=== PATIENT | female | born 2005 | race Caucasian/White ===

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

== ENCOUNTER 2024-09-15 21:21 | Emergency (ER) | payer BC, SELFPAY ==
[2024-09-15 21:23] VITALS: BP 129/80; PULSE 88; RESP 14; TEMP 36.8; O2SAT 100; BMI 18.0
--- NOTE | 2024-09-15 22:18 | EX.ED.DYSGE1 ---
HPI History of Present Illness Chief Complaint: General Illness Informant: patient Narrative Narrative: Presenting with friend reporting fatigue generalized arthralgias for last couple days. No fevers headache muscle pains. No vomiting diarrhea. No cough. No urinary symptoms. Reports concerned of Lyme disease. She states 10 days ago took many ticks off her dog there was some on her arm however none was buried in her arms. She has had tick bites in the past that it has been removed when she was younger. No diagnosis of Lyme disease. 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-employment Home Medications ?Medication ?Instructions ?Recorded ?Last Taken ?Type NK 09/15/24 Unknown History Allergy/AdvReac Type Severity Reaction Status Date / Time No Known Allergies Allergy Verified 09/15/24 21:26 Family History Other Diabetes Heart disease Social History Smoking Status: Current every day smoker tobacco type: e-cigarettes ROS ROS ED Constitutional Constitutional ED: Reports other Details: Fatigue ; Denies chills, fever(s) or sweats ENT ENT ED: Denies sore throat Cardiovascular Cardiovascular: Denies chest pain, leg edema, palpitations or racing heartbeat Respiratory/Chest Respiratory/Chest: Denies cough, dyspnea or dyspnea on exertion Gastrointestinal Gastrointestinal: Denies abdominal pain, diarrhea, nausea or vomiting Genitourinary Genitourinary ED: Denies dysuria, hematuria or urinary frequency Musculoskeletal Musculoskeletal: Reports arthralgias; Denies back pain, extremity pain or neck pain Integumentary Denies rash or wounds Neurologic Neurologic: Denies headache(s), paresthesias or weakness EXAM Physical Exam Const Vital Signs: 09/15/24 21:23 09/15/24 21:44 09/15/24 22:24 Temperature 98.2 F 97.5 F L Temperature Source Oral Pulse Rate 88 69 Respiratory Rate 14 14 Respiratory Effort Normal Respiratory Pattern Normal Blood Pressure 129/80 H 114/62 Blood Pressure Mean 96 79 Pulse Ox 100 100 Oxygen Delivery Method Room Air Positive well nourished and well developed General Appearance ED: well developed and NAD HEENT Reports moist mucous membranes normocephalic and atraumatic Eyes General Eye ED: Yes normal appearance of both eyes Neck full ROM Chest Wall Chest: Negative for tenderness Resp normal respiratory effort and normal air movement Effort and Inspection: symmetric chest movement; Negative for respiratory distress Cardio regular rate, regular rhythm and no murmurs Peripheral Pulses: pulses 2+ throughout GI normal to inspection, nondistended, normoactive bowel sounds and non-tender Palpation: Negative for guarding or rebound tenderness present Extremity normal to inspection General Extremety ED: Negative for edema or tenderness General Extremity: Negative for edema Neuro oriented x3 and no sensory deficits noted Sensorium / Orientation: awake and alert Skin no rashes or lesions noted and no wounds MDM MDM MDM Narrative Medical decision making narrative: Interventions / MDM: Differential diagnosis: Fatigue, arthralgias, concerns of Lyme disease Diagnosis considered but do not suspect: No clinical pneumonia or UTI symptoms. My EKG interpretation: N/A Imaging independently reviewed and interpreted by myself: N/A External documents reviewed: N/A Test considered but not ordered:N/A ED course: Vital signs stable patient nontoxic. Generalized fatigue with arthralgia as a last 2 days. No swelling of joints on exam. Nontoxic. Exposed to many ticks from removed from dog 10 days ago. There has been no rashes, in particular target lesions. With patient concern for Lyme titer sent out for further evaluation. Discussed with patient to contact if positive for treatment. Without lesions, low suspicion therefore no empiric antibiotics will be started at this time unless positive. Re-evaluation: stable Disposition discussed with patient/family/significant other: Patient Case discussed with consulting clinician: N/A This note was generated with Spindle dictation software. It may contain incorrect words, spelling, and punctuation that were not noted in checking the note before signing. Discharge Plan Triage Chief Complaint: General Illness ED Provider: Adriel Segura Dx/Rx/DC Orders Clinical Impression: Fatigue, Arthralgia Instructions: ED Arthralgia Prescriptions: No Action NK Primary Care Provider: Shelly Muhammad Referrals: Shelly Muhammad MD [Primary Care Provider] - 1 Week if not improving Activity Restrictions/Additional Instructions: Lyme titer ordered sent out. Can be contacted if positive for treatment. Print Language: Chinese Disposition Disposition: Home, Self Care Discharge Date/Time: 09/15/24 22:25
[2024-09-15 22:24] VITALS: BP 114/62; PULSE 69; RESP 14; TEMP 36.4; O2SAT 100
[2024-09-17 15:08] LABS: Lyme Scn Total Ab w/Rflx Negative (Negative)
== END 2024-09-15 22:25 | disposition home or self-care (01) ==
PROVIDERS: Emergency Provider Emergency Medicine; PCP Family Medicine; Visit Provider Emergency Medicine
DX: R53.83 Other fatigue (principal); M25.50 Pain in unspecified joint; F17.290 Nicotine dependence, other tobacco product, uncomplicated
CPT/HCPCS: 86618; 99282

== ENCOUNTER → 2024-11-12 | Outpatient (CLI) | payer BC, SELFPAY ==
[2024-11-12 15:53] LABS: Hematocrit 37.9 % (37-47); Hemoglobin 13.2 g/dL (12.0-15.0); Immature Granulocytes Count 0.020 X10^3/uL (0.0-0.0); Mean Corp Hgb Conc 34.8 g/dL (32-36); Mean Corpuscular Volume 85.9 fL (81-99); Mean Platelet Vol. 11.4 fl (6.2-12.0); NRBC Flagged by Analyzer 0 % (0-5); Platelet Count 288 K/mm3 (150-450); RBC Distribution Width CV 12.1 % (11.6-14.6); RBC Distribution Width SD 38.3 fl (35.1-43.9); Red Blood Count 4.41 M/mm3 (4.2-5.4); White Blood Count 8.2 K/mm3 (4.4-11.0)
== END | disposition home or self-care (01) ==
LOC: BFHLAB 13:28
PROVIDERS: PCP Family Medicine; Visit Provider Family Medicine
DX: R63.4 Abnormal weight loss (principal)
CPT/HCPCS: 36415; 84443; 85025

== ENCOUNTER 2025-01-10 22:35 | Emergency (ER) | payer BC, SELFPAY ==
[2025-01-10 22:37] VITALS: BP 116/72; PULSE 73; RESP 16; TEMP 37.1; O2SAT 100; BMI 18.3
--- NOTE | 2025-01-11 01:02 | EDS_ITS ---
HPI History of Present Illness Chief Complaint: General Illness Narrative Narrative: Chief complaint and HPI: Concern for toxic shock syndrome. 19-year-old female with no significant past medical history presents for concern of toxic shock syndrome. Patient states that she was recently on her menstrual cycle. States she accidentally left her tampon in for 2 days. States that the string was not visible. States today she developed some pelvic cramping in which she realized that she still had a tampon inserted. She states when she took the tampon out there was green discharge. She denies any fever, shortness of breath, chest pain, nausea, vomiting. Does endorse some dysuria. States she has not been sexually active in a year and no concern for or STI. Does endorse a mild sore throat. Review of systems: See HPI Medications: As listed on the chart Allergies: As listed on the chart PFSH: Per chart Vital signs: As listed on the chart. Reviewed. Physical exam: Gen: A&O x3, NAD Head: Normocephalic, atraumatic Eyes: No sclera icterus, conjunctiva clear, PERRL, EOMI ENT: TMs clear BL, moist mucous membranes, posterior oropharynx unremarkable, uvula midline, tonsils not enlarged, no tonsillar exudates Neck: Trachea midline, No JVD, Full ROM, No meningismus CV: RRR, no murmurs, no peripheral edema Resp: Lungs CTA BL, no w/r/c GI: Abd soft, non-distended, non-tender, no r/r/g Pelvic: Normal external genitalia. No lesions, masses, or rashes appreciated. No active vaginal bleeding or discharge noted. No drainage or bleeding noted from the cervix. Cervix is non-friable. No cervical motion tenderness appreciated. No sign of PID on examination. No adnexa or ovarian tenderness with digital exam. 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 exam, pre-employment Home Medications ?Medication ?Instructions ?Recorded ?Last Taken ?Type NK 09/15/24 Unknown History Allergy/AdvReac Type Severity Reaction Status Date / Time No Known Allergies Allergy Verified 01/10/25 22:37 Family History Other Diabetes Heart disease Social History Smoking Status: Current every day smoker tobacco type: e-cigarettes EXAM Physical Exam Const Vital Signs: 01/10/25 22:37 01/11/25 00:39 Temperature 98.8 F Temperature Source Oral Pulse Rate 73 Respiratory Rate 16 Respiratory Effort Normal Respiratory Pattern Normal Blood Pressure 116/72 Blood Pressure Mean 86 Pulse Ox 100 Oxygen Delivery Method Room Air MDM MDM MDM Narrative Medical decision making narrative: 19-year-old female with no significant past medical history presents for concern of toxic shock syndrome. Patient states that she was recently on her menstrual cycle. States she accidentally left her tampon in for 2 days. She states when she took the tampon out there was green discharge. On presentation, patient no acute distress. Nontoxic-appearing. Vitals are stable. Afebrile. No concern for toxic shock syndrome at this time. Physical exam was unremarkable without vaginal green discharge or signs of PID on examination. Differential also includes UTI. Patient has no concern for STI. UA will be obtained. Given patient states that there is green discharge although I see none on my exam we will treat her prophylactically with a 5-day course of Augmentin to prevent infection. First dose given here. UA negative for UTI. Patient stable to discharge home. She was educated on monitoring her tampon use. Follow-up with PCP. Return precautions explained. She confirmed understand the plan. Patient will discharge home. Impression: 1. Prolonged tampon exposure Lab Data Labs: Laboratory Results - last 24 hr 01/11/25 01:46 Urine Color Straw Urine Clarity Clear Urine pH 7.0 Ur Specific Reading 1.010 Urine Protein Negative Urine Glucose (UA) Normal Urine Ketones Negative Urine Occult Blood Negative Urine Nitrite Negative Urine Bilirubin Negative Urine Urobilinogen Normal Ur Leukocyte Esterase 25 H Urine RBC 0 SEEN Urine WBC 0-5 SEEN Ur Squamous Epith Cells 0-5 SEEN Urine Bacteria 1+ Urine Mucus 0 SEEN Discharge Plan Triage Chief Complaint: General Illness ED Provider: Kvng Escobar Dx/Rx/DC Orders Prescriptions: No Action NK Primary Care Provider: Shelly Muhammad Referrals: Shelly Muhammad MD [Primary Care Provider] - Print Language: Mongolian
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
[2025-01-11 01:51] LABS: Mucous, Urine 0 SEEN /hpf (<or=2+); Red Blood Cells-Urine 0 SEEN /hpf (0-5)
[2025-01-11 01:52] LABS: Color, Urine Straw (Yellow); Glucose, Dipstick Normal (Normal); Ketone-Dipstick Negative (Negative); Leukocyte Esterase-Dipstick 25 /ul (Negative); Nitrite-Dipstick Negative (Negative); Occult Blood-Urine Negative /ul (Negative); Protein-Dipstick Negative (Negative); Specific Gravity, Urine 1.010 (1.002-1.030); Urine Bilirubin Dipstick Negative (Negative)
[2025-01-11 02:03] LABS: Squamous Epithelial Cells - UA 0-5 SEEN /hpf (5-10)
[2025-01-11 02:25] VITALS: BP 104/74; PULSE 69; RESP 16; TEMP 36.6; O2SAT 99
== END 2025-01-11 02:25 | disposition home or self-care (01) ==
PROVIDERS: Emergency Provider Surgery; PCP Family Medicine; Visit Provider Surgery
DX: Z04.89 Encounter for examination and observation for other specified reasons (principal); F17.290 Nicotine dependence, other tobacco product, uncomplicated
CPT/HCPCS: 81001; 99282